=== PATIENT | female | born 1985 | race Caucasian/White ===

== ENCOUNTER 2021-09-14 19:31 | Emergency (ER) | payer OTHER ==
[2021-09-14 20:30] LABS: SARS-CoV-2 NAA Rapid Test Not Detected (NotDetected)
[2021-09-14] MEDS ORDERED: Morphine 4 MG/ML VIAL ONE (21:00)
[2021-09-14] MEDS ORDERED: Ondansetron PF 4 MG/2 ML Vial ONE ×2 (21:01→21:36)
[2021-09-14] MEDS ORDERED: EPINEPHrine 1 MG/ML AMP ONE (21:33)
[2021-09-14] MEDS ORDERED: Methylergonovine 0.2 MG/ML VIAL ONE (21:34)
[2021-09-14] MEDS ORDERED: Bupivacaine PF 0.5% 30 ML VIAL ONE (21:34)
[2021-09-14] MEDS ORDERED: PROPOFOL 20 ML ONE (21:36)
[2021-09-14] MEDS ORDERED: Ketorolac Tromethamine 30 MG/ML VIAL ONE (21:36)
[2021-09-14] MEDS ORDERED: Lidocaine 2% PF 5 ML VIAL ONE (21:36)
[2021-09-14] MEDS ORDERED: Fentanyl 100 MCG/2 ML VIAL ONE (21:36)
[2021-09-14] MEDS ORDERED: Midazolam HCl 2 mg/2 ml Vial ONE (21:36)
[2021-09-14] MEDS ORDERED: Dexamethasone 20 MG/5 ML VIAL ONE (21:36)
[2021-09-14] MEDS ORDERED: ceFAZolin 2 GM/Dextrose 50 ML 2 GM in Premix Bag 1 BAG IVPB SCH (21:45)
[2021-09-14] MEDS ORDERED: Lactated Ringer's 1,000 ML IV SCH (21:45)
[2021-09-14] MEDS ORDERED: CEFAZOLIN 1 GM VIAL ONE (22:06)
[2021-09-14] MEDS ORDERED: PHENYLEPHRINE-NS 100 MCG/ML 10 ML SYRINGE ONE (22:08)
[2021-09-14] MEDS ORDERED: Oxytocin 10 UNITS/ML VIAL ONE (22:21)
[2021-09-14] MEDS ORDERED: traMADol HCl 50 MG TAB ONE (23:29)
== END 2021-09-14 21:51 | disposition admitted as inpatient to this hospital (09) ==
LOC: CSHERS 19:31
PROC: 10D17ZZ Extraction of Products of Conception, Retained, Via Natural or Artificial Opening (ICD-10-PCS; principal; 2021-09-14)
DX: O03.4 Incomplete spontaneous abortion without complication (principal); Z20.822 Contact with and (suspected) exposure to COVID-19
CPT/HCPCS: 36416; 86850; 86900; 86901; 88305; 96374; 96375; J0171; J0690; J1100; J1885; J2001; J2210; J2250; J2270; J2405; J2590; J2704; J3010; S0020; U0002

== ENCOUNTER 2022-11-24 09:49 | Inpatient (IN) | payer OTHER ==
[2022-11-24 10:31] VITALS: BMI 31.9
[2022-11-24] MEDS ORDERED: Lactated Ringer's 1,000 ML IV SCH (11:15)
[2022-11-24] MEDS ORDERED: Ondansetron PF 4 MG/2 ML Vial IVP PRN ×2 (11:15→16:10)
[2022-11-24] MEDS ORDERED: Oxytocin 30 units/NS 500 ML 500 ML IVPB SCH (11:15)
[2022-11-24] MEDS ORDERED: Acetaminophen 500 MG TAB PO PRN (11:15)
[2022-11-24] MEDS ORDERED: Misoprostol 200 MCG TAB ONE (11:36)
[2022-11-24] MEDS ORDERED: Carboprost 250 MCG/ML AMP ONE (11:36)
[2022-11-24] MEDS ORDERED: Methylergonovine 0.2 MG/ML VIAL ONE (11:36)
[2022-11-24 11:55] LABS: #Eosinphils 0.2 10x3/uL (0.0-0.5); #Monocytes 0.6 10x3/uL (0.0-1.1); #Neutrophils 6.9 10x3/uL (1.5-8.4); %Basophils 0.2 % (0.0-2.0); %Eosinophils 2.1 % (0.0-6.0); %Lymphocytes 17.9 % (18.0-47.0); %Monocytes 6.3 % (0.0-10.0); Hematocrit 41.6 % (34.9-44.5); Hemoglobin 14.6 g/dL (12.0-15.5); Mean Corpuscular HGB CONC 35.1 g/dL (32.0-36.0); Mean Corpuscular Hemoglobin 31.5 pg (27.0-33.0); Mean Corpuscular Volume 89.7 fl (81.6-98.3); Mean Platelet Volume 11.5 fl (7.4-10.4); Platelet Count 162 10x3/uL (150-450); RBC Distribution Width 13.1 % (11.5-14.5); Red Blood Cell (RBC) Count 4.64 10x6/uL (3.90-5.03); White Blood Cell (WBC) Count 9.5 10x3/uL (3.5-10.5)
[2022-11-24] MEDS ORDERED: fentaNYL 50 mcg/mL 1 mL Vial ONE (13:02)
[2022-11-24 14:00] LABS: HBSAg Index 0.15 S/CO (0-0.99); HIV (1/2) Antibody/Antigen Non-Reactive (NonReactive); HIV 1/2 INDEX 0.06 S/CO (<1.00); Hep B Surf Ag - L&D Non-Reactive S/CO (NonReactive)
[2022-11-24 14:01] LABS: Syphilis Antibody Nonreactive (Nonreactive); Syphilis Antibody Index 0.04 S/CO (<1.00 Non-Reactive)
[2022-11-24] MEDS ORDERED: Lidocaine 1% (PF) 30 ML VIAL ONE (14:12)
[2022-11-24] MEDS ORDERED: Bisacodyl 10 MG SUPP PR PRN (16:10)
[2022-11-24] MEDS ORDERED: Preparation H Ointment 28 GM TUBE PR PRN (16:10)
[2022-11-24] MEDS ORDERED: Milk Of Magnesia 30 ML UDCUP PO PRN (16:10)
[2022-11-24] MEDS ORDERED: HYDROcodone/Acetaminophen 5/325 mg Tablet PO PRN (16:10)
[2022-11-24] MEDS ORDERED: Promethazine HCl 25 MG/ML VIAL IM PRN (16:10)
[2022-11-24] MEDS ORDERED: Benzocaine-Menthol 82.5 ML CAN TOP PRN (16:10)
[2022-11-24] MEDS ORDERED: hydrALAZINE 20 MG/ML VIAL SLOW IVP PRN (16:10)
[2022-11-24] MEDS ORDERED: Boostrix 0.5 ML (Tdap) VIAL (>/=7 yrs of age) IM ONE (16:10)
[2022-11-24] MEDS ORDERED: diphenhydrAMINE 25 MG CAP PO PRN (16:10)
[2022-11-24] MEDS ORDERED: Ibuprofen 800 MG TAB PO SCH (16:30)
[2022-11-24] MEDS ORDERED: Ferrous Sulfate 325 MG TAB PO SCH (17:00)
[2022-11-24] MEDS: Docusate 100 MG CAP PO SCH (21:48)
[2022-11-24] MEDS: Ibuprofen 800 MG TAB PO SCH (23:36)
[2022-11-25] MEDS: Ibuprofen 800 MG TAB PO SCH ×2 (06:05→14:18)
[2022-11-25] MEDS: Docusate 100 MG CAP PO SCH (08:31)
[2022-11-25 11:31] VITALS: BP 112/73; TEMP 98.5
== END 2022-11-25 20:15 | disposition home or self-care (01) | DRG 807 ==
LOC: CSHLD/OP 09:49 → CSHLD 10:28 → CSHPP 17:00
PROVIDERS: ADMIT Family Medicine; ATTEND Family Medicine
PROC: 10E0XZZ Delivery of Products of Conception, External Approach (ICD-10-PCS; principal; 2022-11-24)
PROC: 0KQM0ZZ Repair Perineum Muscle, Open Approach (ICD-10-PCS; 2022-11-24)
DX: O42.02 Full-term premature rupture of membranes, onset of labor within 24 hours of rupture (principal); Z37.0 Single live birth; Z3A.39 39 weeks gestation of pregnancy; O70.1 Second degree perineal laceration during delivery
CPT/HCPCS: 85025; 86780; 86850; 86900; 86901; 87340; 87389; 99285; J2001; J3010